=== PATIENT | male | born 2000 | race Caucasian/White ===

== ENCOUNTER 2025-04-18 07:56 | Emergency (ER) | payer OTHER ==
[~2025-04-18] VITALS: Ht 182.9 cm; Wt 77.1 kg
[2025-04-18 08:05] VITALS: PULSE 64; RESP 18; TEMP 98.3
[2025-04-18] MEDS ORDERED: IBUPROFEN600 MG PO (11:16)
[2025-04-18 11:32] VITALS: BP 131/69; PULSE 57; RESP 18; TEMP 98.9; O2SAT 97
== END 2025-04-18 11:23 | disposition home or self-care (01) ==
LOC: FSED 08:00
DX: M25.561 Pain in right knee (principal); Y37.90XA Military operations, unspecified, initial encounter; Y92.89 Other specified places as the place of occurrence of the external cause
CPT/HCPCS: 93976; 99284